=== PATIENT | female | born 1985 | race American Indian/Alaskan Native ===

== ENCOUNTER 2019-05-13 11:00 | Emergency (ER) | payer SELFPAY ==
[2019-05-13 11:13] VITALS: BP 122/69
[2019-05-13] MEDS ORDERED: TYLENOL PO ONE (11:14)
--- NOTE | 2019-05-13 11:15 | Event Note ---
ED Screening Note Date of service: 05/13/19 Time: 11:11 ED Screening Note: 33 y/o female comes in for headache that is 1-2/10. Has not taking anything for pain. 16 weeks preg. No abd pain no vaginal bleeding. no other concerns. No care. This initial assessment/diagnostic orders/clinical plan/treatment(s) is/are subject to change based on patients health status, clinical progression and re- assessment by fellow clinical providers in the ED. Further treatment and workup at subsequent clinical providers discretion. Patient/guardian urged not to elope from the ED as their condition may be serious if not clinically assessed and managed. Initial orders include:
[2019-05-13] MEDS ORDERED: TYLENOL ONE (11:17)
--- NOTE | 2019-05-13 11:55 | Emergency Department Report ---
Chief Complaint: Headache Stated Complaint: HEADACHE/16.5 WKS Time Seen by Provider: 05/13/19 11:11 - HPI History of Present Illness: 33 y/o female comes in for headache that is 1-2/10. Has not taking anything for pain. 16 weeks preg. No abd pain no vaginal bleeding. no other concerns. No care. - ROS Review of Systems: headache 1-2/10 pain. No N/V or abd pain - Exam Vital Signs: Vital Signs 05/13/19 05/13/19 11:10 11:18 Temperature 98.5 F Pulse Rate 87 Respiratory 18 16 Rate Blood Pressure 122/69 O2 Sat by Pulse 100 Oximetry Physical Exam: AxO times 3 NAD EMOI,PERRL Neck FROM Normal gait no pronator drift MSE screening note: Focused history and physical exam performed. Due to findings the following was ordered: Tylenol 650mg given Headache resolved Referral to OB for care ED Disposition for MSE Clinical Impression: Headache Qualifiers: Headache type: unspecified Headache chronicity pattern: acute headache Disposition: PAT REG,NO TRIAGE Does the pt Need Aspirin: No Condition: Stable Additional Instructions: Can take Tylenol for pain. Follow up with a OB provider for care. Puede navjot Tylenol para el dolor. Wendy un seguimiento con un proveedor de OB para la atencin . [facility] [Primary Care Provider] - 3-5 Days [facility] [Provider Group] - 3-5 Days [facility] [Provider Group] - 3-5 Days [facility] [Provider Group] - 3-5 Days
== END 2019-05-13 12:05 | disposition left against medical advice (07) ==
LOC: ED 11:00
DX: O26.892 Other specified pregnancy related conditions, second trimester (principal); R51 Headache; Z3A.16 16 weeks gestation of pregnancy

== ENCOUNTER 2019-08-27 21:44 | Inpatient (IN) | payer OTHER ==
--- NOTE | 2019-08-28 04:32 | Ultrasound Report ---
ULTRASOUND BIOPHYSICAL PROFILE INDICATION / CLINICAL INFORMATION: no care. COMPARISON: None available. FINDINGS: BREATHING MOVEMENT = 2 GROSS BODY MOVEMENT = 2 TONE = 2 QUALITATIVE AMNIOTIC FLUID VOLUME = 2 TOTAL BIOPHYSICAL SCORE = 05/02 AMNIOTIC FLUID INDEX (cm) = 15.3 PRESENTATION: Cephalic. HEART RATE (beats per minute): 144 IMPRESSION: 1. biophysical profile = 05/02 ULTRASOUND OBSTETRIC Indication: no care pelvic pain Findings: There is a single intrauterine . BPD = 9 cm = 37 weeks, 3 day(s). Head circumference = 32 cm = 36 weeks, 3 day(s). Abdominal circumference = 36 cm = 40 weeks, 1 day(s). Femur length = 7.7 cm = 39 weeks, 3 day(s). Overall estimated sonographic age = 38 weeks, 3 day(s). heart rate is 144 beats per minute. Estimated weight is 3742 grams position is cephalic. Cervix appears closed. movement is present. Placenta is anterior and grade 2 . Amniotic fluid volume appears normal. Maternal adnexa appear normal. Impression: 1. Single living intrauterine with estimated sonographic age of 38 weeks, 3 day(s). 2. No sonographic abnormality identified. Signer Name: Jeremi Burns MD Signed: 08/28/2019 4:28 AM Workstation Name: [id number]
[2019-08-28] MEDS ORDERED: MINERAL OIL 30 ML ORAL LIQD PO PRN (04:50)
[2019-08-28] MEDS ORDERED: LIDOCAINE (2%) 20 MG/1 ML VIAL 20 ML MDV INFILTRATI ONE ×2 (04:50→10:17)
[2019-08-28] MEDS ORDERED: ePHEDrine SULFATE 50 MG/1 ML INJ IV PRN (04:50)
[2019-08-28] MEDS ORDERED: AMPICILLIN/NS 2 GM/100 ML 2 GM/100 ML BAG IV ONE (04:50)
[2019-08-28] MEDS ORDERED: BUTORPHANOL 2 MG/1 ML INJ IV PRN (04:50)
[2019-08-28] MEDS ORDERED: ONDANSETRON 4 MG/2 ML INJ IV PRN (04:50)
[2019-08-28] MEDS ORDERED: fentaNYL 100 MCG/2 ML INJ IV PRN (04:50)
[2019-08-28] MEDS ORDERED: TERBUTALINE 1 MG/1 ML INJ IVP PRN (04:50)
[2019-08-28] MEDS ORDERED: TERBUTALINE 1 MG/1 ML INJ SUB-Q PRN (04:50)
[2019-08-28] MEDS ORDERED: OXYTOCIN 20 UNIT/1000ML DRIP 20 UNITS/1,000 ML BAG IV SCH (05:00)
[2019-08-28] MEDS ORDERED: LACTATED RINGERS 1,000 ML IV SCH (05:00)
--- NOTE | 2019-08-28 05:12 | History and Physical Report ---
History of Present Illness Date of examination: 08/28/19 Date of admission: 08/28/19 04:48 Chief complaint: Painful ctxs History of present illness: 33 yo, at 40.6 wks gestation. Reports she is a pt at [facility] , with one visit. There are no records available. She reports of [facility] of 08/22/2019. Reports + FM. Denies VB, but does report LOF. Speculum exam showed no pooling. OB U/S completed today at [facility] gives gest age of 38.3. wks, JAXSON of 15.3. BPP 8/8. Past History - Obstetrical History : 2 Medications and Allergies Allergies Allergy/AdvReac Type Severity Reaction Status Date / Time No Known Allergies Allergy Unverified 05/13/19 11:03 Active Meds: Active Medications Butorphanol Tartrate (Stadol) 2 mg IV Q2H PRN PRN Reason: Pain , Severe (7-10) Ephedrine Sulfate (Ephedrine Sulfate) 10 mg IV Q2M PRN PRN Reason: Hypotension Fentanyl (Sublimaze) 100 mcg IV Q2H PRN PRN Reason: Labor Pain Oxytocin/Sodium Chloride (Pitocin/Ns 20 Unit/1000ml Drip) 20 units in 1,000 mls @ 125 mls/hr IV DIRECT SHADIA Lactated Ringer's (Lactated Ringers) 1,000 mls @ 125 mls/hr IV DIRECT SHADIA Ampicillin Sodium (Ampicillin/Ns 2 Gm/100 Ml) 2 gm in 100 mls @ 100 mls/hr IV ONCE ONE; Protocol Stop: 08/28/19 05:49 Ampicillin Sodium (Ampicillin/Ns 1 Gm/50 Ml) 1 gm in 50 mls @ 100 mls/hr IV Q4HR SHADIA; Protocol Mineral Oil (Mineral Oil) 30 ml PO QHS PRN PRN Reason: Constipation Ondansetron HCl (Zofran) 4 mg IV Q8H PRN PRN Reason: Nausea And Vomiting Terbutaline Sulfate (Brethine) 0.25 mg SUB-Q ONCE PRN PRN Reason: Hyperstimulation/Hypertonicity Terbutaline Sulfate (Brethine) 0.25 mg IVP ONCE PRN PRN Reason: Hyperstimulation/Hypertonicity Review of Systems All systems: negative Genitourinary: contractions - Vital Signs Vital signs: Vital Signs Pulse BP 81 115/65 08/27/19 23:26 08/27/19 23:26 Temp Pulse Resp BP Pulse Ox 81 115/65 08/27/19 23:26 08/27/19 23:26 - Physical Exam Breasts: Positive: deferred Cardiovascular: Regular rate Lungs: Positive: Normal air movement Abdomen: Positive: other (gravid) Genitourinary (Female): Positive: normal external genitalia, normal perenium Vagina: Positive: normal moisture Uterus: Positive: enlarged (S=D) Extremities: Positive: normal Deep Tendon Reflex Grade: Normal +2 - Obstetrical FHR: category 1 Uterine Contraction Monitor Mode: External Cervical Dilatation: 4 Cervical Effacement Percentage: 80 station: -2 Uterine Contraction Frequency (min): 2-3 Uterine Contraction Pattern: Irregular Uterine Tone Measurement Phase: Resting Uterine Contraction Intensity: Mild Results All other labs normal. Assessment and Plan - Patient Problems (1) Post-dates Current Visit: Yes Status: Acute Qualifiers: Post-term type: 40-42 weeks gestation Qualified Code(s): O48.0 - Post-term Plan to address problem: Admit to L & D panel GBS prophylaxis Expectant management Anticipate (2) Insufficient care Current Visit: Yes Status: Acute Qualifiers: Trimester: third trimester Qualified Code(s): O09.33 - Supervision of with insufficient care, third trimester
[2019-08-28 05:33] LABS: Mean Corpuscular HGB Conc 33 % (30-34); Mean Corpuscular Volume 93 fl (79-97); Platelet Count 213 K/mm3 (140-440); Red Blood Count 3.99 M/mm3 (3.65-5.03)
[2019-08-28 06:42] LABS: Amphetamine Screen,Urine PRESUMPTIVE NEGATIVE; Benzodiazepines Screen,Urine PRESUMPTIVE NEGATIVE; Cannabinoid Screen,Urine PRESUMPTIVE NEGATIVE; Cocaine Screen,Urine PRESUMPTIVE NEGATIVE; Methadone Screen,Urine PRESUMPTIVE NEGATIVE; Opiate Screen,Urine PRESUMPTIVE NEGATIVE
[2019-08-28 06:48] LABS: Bilirubin,Urine NEG (Negative); Color,Urine Yellow (Yellow)
[2019-08-28 06:49] LABS: Amorphous Crystals,Urine Few; Bacteria,Urine 3+ /HPF (Negative); Blood,Urine MOD (Negative); Mucus,Urine FEW /HPF; Protein,Urine <15 mg/dL mg/dL (Negative); Urobilinogen,Urine < 2.0 mg/dL (<2.0)
[2019-08-28] MEDS ORDERED: AMPICILLIN/NS 1 GM/50 ML 1 GM/50 ML BAG IV SCH (08:30)
[2019-08-28] MEDS ORDERED: MINERAL OIL TP PRN (09:30)
[2019-08-28] MEDS ORDERED: OXYTOCIN DRIP 30,000 MILLIUNITS/500 ML BAG IV ONE (09:35)
[2019-08-28] MEDS ORDERED: OXYTOCIN DRIP 30 UNITS/500 ML BAG IV SCH (10:00)
[2019-08-28] MEDS ORDERED: miSOPROStol 200 MCG TAB ONE (10:14)
[2019-08-28] MEDS ORDERED: fentaNYL 100 MCG/2 ML INJ IV NR (10:17)
[2019-08-28] MEDS ORDERED: LANOLIN/ZINC/DIMETHICONE (LANSINOH) 7 GM TP PRN (10:48)
[2019-08-28] MEDS ORDERED: HYDROcodone/ACETAMINOPHEN 5-325 MG TAB PO PRN (10:48)
[2019-08-28] MEDS ORDERED: diphenhydrAMINE 25 MG CAP PO PRN (10:48)
[2019-08-28] MEDS ORDERED: WITCH HAZEL/ GLYCERIN PAD TP PRN (10:48)
--- NOTE | 2019-08-28 11:01 | Procedure Note ---
OB Delivery Note - Delivery Date of Delivery: 08/28/19 (1006) Surgeon: FLACO WILLIAMSON Estimated blood loss: 300cc - Vaginal Delivery presentation: vertex Delivery position: OA Intrapartum events: meconium Delivery induction: none Delivery augmentation: pitocin Delivery monitor: external FHT, external uterine Route of delivery: Delivery placenta: spontaneous Delivery cord: nuchal cord, 3 umbilical vessels Episiotomy: none Delivery laceration: 2nd degree Delivery repair: vicryl Anesthesia: local Delivery comments: of a live 8'2 female infant over a 2nd degree perineal laceration without pain control with Apgars of 8 and 9 at 1006 on 08/28/2019. Tight nuchal cord x 1, manually reduced on the perineum prior to delivery of the anterior shoulder. directly to maternal abd/chest; skin to skin contact. Spontaneous delivery of placenta complete and intact with [place] side presenting at 1009. 1000mcg of Cytotec placed per rectum after placenta delivery. Fundus firm and midline located 4 below the U. Lochia is scant. Perineal laceration repaired with 2-[address]-1 under local 2% Lidocaine. Delayed cord clamping and cutting. Cord blood collected; placenta to pathology. GBS prophylaxis x 2. - Infant A at 1 minute: 8 at 5 minutes: 9 Gender: Female (8'2)
[2019-08-28] MEDS: IBUPROFEN 600 MG TAB PO SCH (11:32)
[2019-08-28] MEDS ORDERED: miSOPROStol 200 MCG TAB PR ONE (12:00)
[2019-08-28] MEDS ORDERED: BENZOCAINE/MENTHOL 20/0.5% TOP SPRAY 56 GM TP ONE (17:49)
[2019-08-28] MEDS ORDERED: BENZOCAINE/MENTHOL 20/0.5% TOP SPRAY 56 GM TP PRN (19:00)
[2019-08-28 23:45] LABS: Hematocrit 31.2 % (30.3-42.9); Hemoglobin 10.4 gm/dl (10.1-14.3)
[2019-08-29] MEDS: IBUPROFEN 600 MG TAB PO SCH ×5 (00:38→23:13)
[2019-08-29] MEDS: PRENATAL VIT27-FE FUMARATE-FOLIC ACID VIT TAB PO SCH ×2 (11:28→21:05)
--- NOTE | 2019-08-29 12:21 | Progress Note ---
Assessment and Plan A: PPD#1 s/p Stable P: Routine PP care Anticipate d/c home 08/30/2019 Subjective - Subjective Date of service: 08/29/19 Principal diagnosis: PPD#1 s/p Interval history: See delivery note Patient reports: appetite normal, voiding normally, pain well controlled, flatus, bowel movement, ambulating normally : doing well, nursing well Objective - Vital Signs Latest vital signs: Vital Signs Temp Pulse Resp BP BP Pulse Ox 08/29/19 09:01 85 98 08/29/19 09:00 97.8 F 79 18 101/58 97 08/29/19 05:51 20 08/29/19 00:42 97.5 F L 85 20 106/69 99 08/29/19 00:38 18 08/28/19 20:56 98.7 F 72 20 108/66 97 08/28/19 12:30 98 F 65 18 117/65 99 Intake and Output 08/28/19 08/29/19 08/29/19 23:59 07:59 15:59 Intake Total 960 120 Output Total 600 Balance 360 120 Intake: Oral 480 120 Intake, Free Water 480 Output: Urine 600 Void 600 Other: Total, Intake Amount 120 120 Total, Output Amount 600 # Voids Void 1 1 - Exam Breasts: Present: normal, Cardiovascular: Present: Regular rate, Normal S1, Normal S2, No murmurs Lungs: Present: Clear to auscultation, Normal air movement Abdomen: Present: normal appearance, soft, normal bowel sounds. Absent: distention Vulva: both: laceration/episiotomy (2nd degree, well approximated) Uterus: Present: firm, fundal height below umbilicus (-1) Extremities: Present: normal Deep Tendon Reflex Grade: Normal +2
--- NOTE | 2019-08-29 12:23 | Discharge Summary ---
Providers - Providers Date of Admission: 08/28/19 04:48 Date of discharge: 08/30/19 Attending physician: JORGE L MENA MD Primary care physician: JORGE L MENA MD Hospitalization Reason for admission: active labor, IUP at term Delivery: Procedure details: See delivery note Episiotomy: none Laceration: 2nd degree (well approximated) Other procedures: none complications: none Discharge diagnosis: IUP at term delivered [place] baby: female Condition at discharge: Good Disposition: DC-01 TO HOME OR SELFCARE Plan - Provider Discharge Summary Activity: routine, no sex for 6 weeks, no heavy lifting 4 weeks, no strenuous exercise Diet: routine Instructions: routine Additional instructions: [] Smoking cessation referral if applicable(refer to patient education folder for contact #) [] Refer to [facility] Booklet Call your doctor immediately for: * Fever > 100.5 * Heavy vaginal bleeding ( >1 pad per hour) * Severe persistent headache * Shortness of breath * Reddened, hot, painful area to leg or breast * Drainage or odor from incision. * Keep incision clean and dry at all times and follow doctor's instructions r egarding bathing/showering - Follow up plan Follow up: JORGE L MENA MD [Primary Care Provider] - 6 Weeks
[2019-08-30] MEDS ORDERED: TETANUS,DIPH,PERTUSS(ACELL) VACCINE 0.5 ML SYRINGE IM ONE (05:00)
[2019-08-30] MEDS: IBUPROFEN 600 MG TAB PO SCH ×3 (05:18→17:00)
[2019-08-30] MEDS: PRENATAL VIT27-FE FUMARATE-FOLIC ACID VIT TAB PO SCH (11:10)
[2019-08-30 17:20] VITALS: BP 103/62
== END 2019-08-30 17:55 | disposition home or self-care (01) | DRG 807 ==
LOC: TRG 21:44 → LD 08-28 04:43 → TRG 08-28 04:44 → LD 08-28 04:48 → OB 08-28 13:03
PROVIDERS: ADMIT Obstetrics & Gynecology; ATTEND Obstetrics & Gynecology
PROC: 10E0XZZ Delivery of Products of Conception, External Approach (ICD-10-PCS; principal; 2019-08-28)
PROC: 0KQM0ZZ Repair Perineum Muscle, Open Approach (ICD-10-PCS; 2019-08-28)
PROC: 3E0234Z Introduction of Serum, Toxoid and Vaccine into Muscle, Percutaneous Approach (ICD-10-PCS; 2019-08-30)
DX: O48.0 Post-term pregnancy (principal); Z37.0 Single live birth; Z3A.40 40 weeks gestation of pregnancy; O77.0 Labor and delivery complicated by meconium in amniotic fluid; O69.81X0 Labor and delivery complicated by cord around neck, without compression, not applicable or unspecified; O70.1 Second degree perineal laceration during delivery; Z23 Encounter for immunization
CPT/HCPCS: 36415; 76816; 76819; 80307; 81001; 85014; 85018; 85027; 86592; 86706; 86762; 86850; 86900; 86901; 87806; 88307; G0378; A6250; J0290; J2590; J3010